=== PATIENT | female | born 1985 | race Caucasian/White ===

== ENCOUNTER 2022-12-17 21:00 | Emergency (ER) | payer OTHER ==
[~2022-12-17] VITALS: Ht 157.4 cm; Wt 79.4 kg
[2022-12-17] MEDS ORDERED: FAMOTIDINE 20 MG (PEPCID) TABLET PO ONE (21:15)
[2022-12-17] MEDS ORDERED: ONDANSETRON 4 MG/2 ML (SDV) Z0FRAN IVP ONE (21:15)
[2022-12-17] MEDS ORDERED: ANTACID SUSP 30 ML UDC (MYLANTA) PO ONE (21:15)
[2022-12-17] MEDS ORDERED: ACETAMINOPHEN 500 MG TAB (TYLENOL) PO ONE (21:15)
--- NOTE | 2022-12-17 21:15 | ED Abdominal Pain ---
General Chief Complaint: Abdominal/GI Problems Stated Complaint: ABD PAIN,INDIGESTION,BLOATING Source of Information: Patient Exam Limitations: No Limitations History of Present Illness Date Seen by Provider: December 17, 2022 Time Seen by Provider: 21:01 Initial Comments 37-year-old female with no pertinent past medical history coming in due to right upper quadrant pain. Started this morning, intermittent, sharp, has not eaten anything, associated with nausea. Has never had this pain before. Has had a tubal ligation and hernia repair in the past. She still has her gallbladder. Otherwise denying any fever, vomiting, diarrhea, dysuria, chest pain, shortness of breath, or any other concerns. Allergies and Home Medications Allergies Coded Allergies: No Known Drug Allergies (Unverified , 12/17/22) Patient Home Medication List Home Medication List Reviewed: Yes Review of Systems Review of Systems Constitutional: No fever EENTM: No Symptoms Reported Respiratory: No Symptoms Reported Cardiovascular: No Symptoms Reported Gastrointestinal: See HPI Genitourinary: No Symptoms Reported Musculoskeletal: no symptoms reported Skin: no symptoms reported Psychiatric/Neurological: No Symptoms Reported Endocrine: No Symptoms Reported Hematologic/Lymphatic: No Symptoms Reported Past Relsnsa-Nsxrmn-Baobrf Hx Patient Social History Tobacco Use?: No Smoking Status: Former Smoker Substance use?: No Alcohol Use?: No Past Medical History Surgery/Hospitalization HX: Tubal ligation and hernia repair Surgeries: Yes Physical Exam Vital Signs Vital Signs - First Documented 12/17/22 21:06 Temp 36.9 Pulse 70 Resp 16 B/P (MAP) 135/80 (98) Pulse Ox 99 O2 Delivery Room Air Capillary Refill : Height/Weight/BMI Height: '" Weight: lbs. oz. kg; BMI Method: General Appearance: WD/WN, no apparent distress HEENT: PERRL/EOMI, normal ENT inspection, pharynx normal Neck: non-tender, full range of motion, supple, normal inspection Respiratory: chest non-tender, lungs clear, normal breath sounds, no respiratory distress, no accessory muscle use Cardiovascular: regular rate, rhythm, no edema, no murmur Gastrointestinal: normal bowel sounds, soft; No guarding, No rebound; tenderness Extremities: normal range of motion, non-tender, normal inspection, no pedal edema, no calf tenderness, normal capillary refill Back: normal inspection, no CVA tenderness Neurologic/Psychiatric: no motor/sensory deficits, alert, normal mood/affect Skin: normal color, warm/dry Progress/Results/Core Measures Results/Orders Lab Results Laboratory Tests Test 12/17/22 21:12 12/17/22 21:15 Range/Units Urine Color YELLOW Urine Clarity CLEAR Urine pH 6.0 5-9 Urine Specific [place] 1.020 1.016-1.022 Urine Protein NEGATIVE NEGATIVE Urine Glucose (UA) NEGATIVE NEGATIVE Urine Ketones NEGATIVE NEGATIVE Urine Nitrite NEGATIVE NEGATIVE Urine Bilirubin NEGATIVE NEGATIVE Urine Urobilinogen 0.2 < = 1.0 MG/DL Urine Leukocyte Esterase NEGATIVE NEGATIVE Urine RBC (Auto) TRACE-I H NEGATIVE Urine RBC NONE /HPF Urine WBC 0-2 /HPF Urine Squamous Epithelial Cells 2-5 /HPF Urine Crystals NONE /LPF Urine Bacteria MODERATE H /HPF Urine Casts NONE /LPF Urine Mucus NEGATIVE /LPF Urine Culture Indicated NO White Blood Count 7.0 4.3-11.0 10^3/uL Red Blood Count 4.79 3.80-5.11 10^6/uL Hemoglobin 14.8 11.5-16.0 g/dL Hematocrit 45 35-52 % Mean Corpuscular Volume 93 80-99 fL Mean Corpuscular Hemoglobin 31 25-34 pg Mean Corpuscular Hemoglobin Concent 33 32-36 g/dL Red Cell Distribution Width 12.6 10.0-14.5 % Platelet Count 236 130-400 10^3/uL Mean Platelet Volume 9.5 9.0-12.2 fL Immature Granulocyte % (Auto) 0 % Neutrophils (%) (Auto) 66 42-75 % Lymphocytes (%) (Auto) 25 12-44 % Monocytes (%) (Auto) 5 0-12 % Eosinophils (%) (Auto) 3 0-10 % Basophils (%) (Auto) 0 0-10 % Neutrophils # (Auto) 4.7 1.8-7.8 10^3/uL Lymphocytes # (Auto) 1.8 1.0-4.0 10^3/uL Monocytes # (Auto) 0.3 0.0-1.0 10^3/uL Eosinophils # (Auto) 0.2 0.0-0.3 10^3/uL Basophils # (Auto) 0.0 0.0-0.1 10^3/uL Immature Granulocyte # (Auto) 0.0 0.0-0.1 10^3/uL Sodium Level 139 135-145 MMOL/L Potassium Level 4.2 3.6-5.0 MMOL/L Chloride Level 103 98-107 MMOL/L Carbon Dioxide Level 25 21-32 MMOL/L Anion Gap 11 5-14 MMOL/L Blood Urea Nitrogen 8 7-18 MG/DL Creatinine 0.90 0.60-1.30 MG/DL Estimat Glomerular Filtration Rate 84 BUN/Creatinine Ratio 9 Glucose Level 89 70-105 MG/DL Calcium Level 10.0 8.5-10.1 MG/DL Corrected Calcium 8.5-10.1 MG/DL Magnesium Level 2.1 1.6-2.4 MG/DL Total Bilirubin 0.7 0.1-1.0 MG/DL Aspartate Amino Transf (AST/SGOT) 16 5-34 U/L Alanine Aminotransferase (ALT/SGPT) 11 0-55 U/L Alkaline Phosphatase 81 40-136 U/L C-Reactive Protein 0.53 H <0.50 MG/DL Total Protein 7.8 6.4-8.2 GM/DL Albumin 4.7 H 3.2-4.5 GM/DL Lipase 33 8-78 U/L My Orders Orders - YODIT HANSEN MD Ua Culture If Indicated (12/17/22 21:08) Urine Bedside (12/17/22 21:08) Cbc With Automated Diff (12/17/22 21:15) Comprehensive Metabolic Panel (12/17/22 21:15) Lipase (12/17/22 21:15) Magnesium (12/17/22 21:15) Crp Fs (12/17/22 21:15) Ed Iv/Invasive Line Start (12/17/22 21:15) Ondansetron Injection (Zofran Injectio (12/17/22 21:15) Famotidine Tablet (Pepcid Tablet) (12/17/22 21:15) Antacid Suspension (Mylanta Suspension (12/17/22 21:15) Acetaminophen Tablet (Tylenol Tablet) (12/17/22 21:15) Medications Given in ED Current Medications Medications Dose Ordered Sig/Dena Route Start Time Stop Time Status Last Admin Dose Admin Acetaminophen 1,000 mg ONCE ONCE PO 12/17/22 21:15 12/17/22 21:17 DC 12/17/22 21:22 1,000 MG Al Hydrox/Mg Hydrox/Simethicone 30 ml ONCE ONCE PO 12/17/22 21:15 12/17/22 21:17 DC 12/17/22 21:21 30 ML Famotidine 20 mg ONCE ONCE PO 12/17/22 21:15 12/17/22 21:17 DC 12/17/22 21:22 20 MG Ondansetron HCl 4 mg ONCE ONCE IVP 12/17/22 21:15 12/17/22 21:17 DC 12/17/22 21:21 4 MG Vital Signs/I&O 12/17/22 21:06 Temp 36.9 Pulse 70 Resp 16 B/P (MAP) 135/80 (98) Pulse Ox 99 O2 Delivery Room Air Progress Progress Note : Progress Note 37-year-old female presenting for abdominal pain. ABCs were intact and vitals were stable on presentation. Physical exam with right upper quadrant tenderness which is very mild, Summers negative, overall well-appearing. She is describing a lot of belching, and certainly could be GERD versus gastritis versus cholecystitis versus pancreatitis versus some other etiology. An IV was placed and basic labs were obtained. I personally did a right upper quadrant ultrasound showing her right kidney with no hydronephrosis, gallbladder wall thickness was less than 0.3 cm, no pericholecystic fluid, and there was 1 potential gallstone versus polyp, although there was no shadowing making gallstone less likely. She had a negative sonographic Summers's as well. She was given a GI cocktail as well as some Tylenol and Zofran. Labs were significant for normal white blood cell count, normal creatinine, normal LFTs, negative lipase, and essentially normal CRP at 0.53 with normal less than 0.5. I did repeat abdominal exam with no tenderness and she is feeling better after the GI cocktail. Margarita more heavily towards a gastritis type issue. I will order a formal outpatient ultrasound for the patient, and sent prescriptions for nausea medicine as well as a PPI. I believe she is otherwise stable for discharge with outpatient follow-up. She was sent home with strict return precautions. Departure Impression Primary Impression: RUQ pain Additional Impressions: Nausea alone Belching symptom Disposition: HOME, SELF-CARE Condition: Stable Departure-Patient Inst. Decision time for Depature: 22:00 Referrals: GERTRUDIS RODRIGUEZ APRN (PCP/Family) Primary Care Physician Patient Instructions: Gastritis (DC), Nausea and Vomiting, Adult ED Add. Discharge Instructions: We lean towards this being more of a stomach issue. We will start you on an acid medicine as well as nausea medicine. Please get the ultrasound done as an outpatient as soon as possible to formally look at the gallbladder and make sure everything looks okay. Follow-up with your regular doctor if you are not seeing improvement in the next couple of days. If you have severe abdominal pain despite ibuprofen and/or Tylenol that you are concerned about, you can always come back to the ER. You can also take over the counter pepcid and maalox for your discomfort and belching symptoms. Scripts Pantoprazole Sodium (Pantoprazole Sodium) 40 Mg Tablet.dr 40 MG PO DAILY for 30 Days, #30 TAB Prov: YODIT HANSEN MD 12/17/22 Ondansetron (Ondansetron Odt) 4 Mg Tab.rapdis 4 MG SL Q6H PRN for NAUSEA/VOMITING for 5 Days, #20 TAB Prov: YODIT HANSEN MD 12/17/22 Work/School Note: Work Release Form Date Seen in the Emergency Department: December 17, 2022 Return to Work: December 19, 2022 Restrictions: Return-No Vomiting(24hrs) YODIT HANSEN MD December 17, 2022 21:15
[2022-12-17 21:22] LABS: BASOPHILS % (AUTO) 0 % (0-10); EOSINOPHILS # (AUTO) 0.2 10^3/uL (0.0-0.3); EOSINOPHILS % (AUTO) 3 % (0-10); HEMATOCRIT 45 % (35-52); HEMOGLOBIN 14.8 g/dL (11.5-16.0); LYMPHOCYTES # (AUTO) 1.8 10^3/uL (1.0-4.0); LYMPHOCYTES % (AUTO) 25 % (12-44); MEAN CORPUSCULAR HEMOGLOBIN 31 pg (25-34); MEAN CORPUSCULAR HGB CONC 33 g/dL (32-36); MEAN CORPUSCULAR VOLUME 93 fL (80-99); MEAN PLATELET VOLUME 9.5 fL (9.0-12.2); MONOCYTES # (AUTO) 0.3 10^3/uL (0.0-1.0); MONOCYTES % (AUTO) 5 % (0-12); NEUTROPHILS # (AUTO) 4.7 10^3/uL (1.8-7.8); NEUTROPHILS % (AUTO) 66 % (42-75); PLATELET COUNT 236 10^3/uL (130-400)
[2022-12-17 21:23] LABS: BILIRUBIN,URINE NEGATIVE (NEGATIVE); CLARITY,URINE CLEAR; COLOR,URINE YELLOW; GLUCOSE, URINE (UA) NEGATIVE (NEGATIVE); KETONES,URINE NEGATIVE (NEGATIVE); LEUKOCYTE ESTERASE ,URINE NEGATIVE (NEGATIVE); NITRITE,URINE NEGATIVE (NEGATIVE); PROTEIN,URINE NEGATIVE (NEGATIVE)
[2022-12-17 21:31] LABS: BACTERIA,URINE MODERATE /HPF; WBC,URINE 0-2 /HPF
[2022-12-17 21:43] LABS: CHLORIDE 103 MMOL/L (98-107); POTASSIUM 4.2 MMOL/L (3.6-5.0); SODIUM 139 MMOL/L (135-145)
[2022-12-17 21:44] LABS: ALANINE AMINOTRANSFERASE 11 U/L (0-55); ALBUMIN 4.7 GM/DL (3.2-4.5); ALKALINE PHOSPHATASE 81 U/L (40-136); BILIRUBIN,TOTAL 0.7 MG/DL (0.1-1.0); BUN/CREATININE RATIO 9; CARBON DIOXIDE 25 MMOL/L (21-32); GFR ESTIMATED 84; GLUCOSE 89 MG/DL (70-105); LIPASE 33 U/L (8-78); MAGNESIUM 2.1 MG/DL (1.6-2.4); TOTAL PROTEIN 7.8 GM/DL (6.4-8.2)
[2022-12-17] MEDS ORDERED: PANT40TA52 PO (21:53)
[2022-12-17] MEDS ORDERED: ONDA4TAB11 SL (21:53)
[2022-12-17] MEDS ORDERED: RX-ONDANSETRON 4 MG ODT (ZOFRAN) PPK #4 PO STA (21:54)
[2022-12-17 21:59] VITALS: BP 111/74
== END 2022-12-17 21:59 | disposition home or self-care (01) ==
LOC: ER FS 21:03
DX: R10.11 Right upper quadrant pain (principal); R11.0 Nausea; R14.2 Eructation; Z28.310 Unvaccinated for COVID-19; Z87.891 Personal history of nicotine dependence; Z98.890 Other specified postprocedural states
CPT/HCPCS: 36415; 80053; 81000; 83690; 83735; 84703; 85025; 86141

== ENCOUNTER → 2022-12-18 | Outpatient (CLI) | payer OTHER ==
[~2022-12-18] MED LIST: ONDA4TAB11 SL; PANT40TA52 PO
--- NOTE | 2022-12-18 10:05 | Diagnostic Imaging Report ---
PROCEDURE: US Gallbladder. TECHNIQUE: Multiple real-time grayscale images were obtained over the right upper quadrant in various projections. INDICATION: Right upper quadrant pain. Liver is normal in size at 13 cm. There are several echogenic, non-shadowing, non-mobile foci within the gallbladder which may represent small gallbladder polyps. There is no gallbladder wall thickening. No pericholecystic fluid or biliary ductal dilatation is seen. Pancreas was obscured by bowel gas. Aorta and IVC are unremarkable. Right kidney is without calculi or hydronephrosis. There is no ascites. IMPRESSION: Probable gallbladder polyps. No definite cholelithiasis or evidence of acute cholecystitis is identified. Dictated by: Dictated on workstation # [id number]
== END ==
LOC: RAD FS 08:53
PROVIDERS: ATTEND Emergency Medicine
DX: R10.11 Right upper quadrant pain (principal)
CPT/HCPCS: 76705